=== PATIENT | male | born 1985 | race Caucasian/White ===

== ENCOUNTER 2025-04-21 22:12 | Emergency (ER) | payer MEDICAID, SELFPAY ==
[2025-04-21 22:35] VITALS: BMI 25.8
[2025-04-21 22:38] VITALS: BP 119/86; PULSE 86; RESP 18; TEMP 36.6; O2SAT 98
--- NOTE | 2025-04-30 22:53 | PD.EDMEDCL ---
ED Medical Clearance RME/HPI General Chief complaint: Medical Clearance Stated complaint: MEDICAL CLEARANCE Time Seen by Provider: 04/21/25 22:44 Arrival date/time: 04/21/25 22:12 RME / HPI RME / HPI Narrative: See [facility] for Dr. Yeh's HPI Documentation. Related Information Allergies Allergy/AdvReac Type Severity Reaction Status Date / Time No Known Allergies Allergy Verified 01/19/23 18:23 Review of Systems Review of Systems Systems Reviewed: All systems reviewed, normal except as documented Past Medical History Social History SMOKING STATUS: Current some day smoker ED Exam Narrative Physical exam: See [facility] for Dr. Yeh's Physical Exam Documentation. Course Quality Measures none Vital Signs Vital signs: Vital Signs Temperature 97.8 F 04/21/25 22:38 Pulse Rate 86 04/21/25 22:38 Respiratory Rate 18 04/21/25 22:38 Blood Pressure 119/86 H 04/21/25 22:38 Pulse Oximetry (%) 98 04/21/25 22:38 Oxygen Delivery Method Room Air 04/21/25 22:38 Medical Clearance [facility] Narrative [facility] Narrative:: This section includes all my notes and documentations, including HPI, PE, and ED course. Elías Yeh MD HPI: 39 y/o male here for intermediate medical clearance. Due to severe alcohol intoxication, he was sent here for evaluation. Here, patient is alert and awake. Commented how beautiful his nurse was during evaluation. No headache or dizziness. No chest pain or abdominal pain. No nausea or vomiting. No other complaints. ROS: All negative except as documented in HPI. Physical Exam: General: Alert and oriented. No acute distress. Eyes: Conjunctivae and lids clear. EOMI. PERRL. ENT: No nasal congestion. Neck: Supple. Heart: RRR. Lungs: No respiratory distress. Good air movement. No rhonchi, wheezing, rales. Abdomen: Soft and nontender. Normal bowel sounds. No distension. No rebound or guarding. Legs: No clubbing, cyanosis, edema. Skin: Warm and dry. Neuro: Alert and oriented X 3. Cranial Nerves II-XII grossly intact. No peripheral motor deficits. Musculoskeletal: All major joints and bones are not tender with no limited ROM. At this point, diagnoses include: Medical Clearance for Incarceration Based on my best medical judgment, made decision to medically clear the patient and no further evaluation or treatment indicated at this time. Patient understands and agrees to the discharge instructions customized and printed, see below. Discharge Instructions from Dr. Yeh printed for you: 1. After evaluation, you are medically cleared for intermediate. 2. Seek immediate medical care with any concerns. Elías Yeh MD Patient data External records reviewed:: [facility] previous records (Reviewed prior ED records from 11/14/23. Patient was seen for Abrasion of nose.) Clinical information provided by:: patient and law enforcement Social determinants that could affect healthcare access:: none Patient has the following chronic illnesses:: Smoking How is presenting disease/condition affected by chronic disease/condition?: uneffected by Evaluation data The following diagnostics were reviewed and interpreted by me:: other (specify) (N/A) Lab and/or radiology exams considered but not ordered:: None Interpretation Summary: None Medications / Prescriptions Medications or Prescriptions considered but not ordered:: None Medication administrations:: None Consultations Consultation(s) initiated? (list below): No Diagnosis Medical Clearance Differential Diagnosis: other (Alcohol intoxication) Most likely diagnosis given after review of the tests above:: Medical Clearance for Incarceration Admission Indicated Admission indicated?: not indicated Explain why admission is indicated or not indicated:: With no condition needing emergent intervention, there was no indication for admission. Admission Request Was there a request for admission?: No Disposition Plan Disposition Plan: Discharge Discharge Attestation Discharge Attestation: The patient and all family members were given an opportunity to ask questions and understood the discharge instructions. Discharge instructions specifically effects, indications for sooner follow up or return to the emergency department, and the expected course of current diagnosis. Patient condition: Stable Discharge Plan Plan Patient Disposition: Group Home/Court/Law Problem List Clinical Impression: Medical clearance for incarceration Patient/Caregiver Discharge Instructions Discharge Activity: activity as tolerated Education Materials: ED Drug Abuse, ED Alcohol Abuse Additional Instructions: Discharge Instructions from Dr. Yeh printed for you: 1. After evaluation, you are medically cleared for intermediate. 2. Seek immediate medical care with any concerns. Print Language: Telugu
== END 2025-04-21 22:51 ==
LOC: SERX 22:57
PROVIDERS: Emergency Provider Emergency Medicine
DX: Z02.89 Encounter for other administrative examinations (principal)
CPT/HCPCS: 99281

== ENCOUNTER 2025-05-04 00:43 | Emergency (ER) | payer MEDICAID, SELFPAY ==
[2025-05-04] VITALS (8 sets, daily range): BP systolic 90–126; BP diastolic 60–81; PULSE 77–92; RESP 16–20; TEMP 36.7–36.8; O2SAT 92–100; BMI 24.3
--- NOTE | 2025-05-04 00:55 | EDNOTE_ITS ---
ED Alcohol RME/HPI General Chief Complaint: Altered Mental Status Stated Complaint: HEAD PAIN Time Seen by Provider: 05/04/25 00:49 Arrival date/time: 05/04/25 00:43 RME / HPI complaint: alcohol intoxication Last drink: Just Prior to Arrival Chronic alcohol use: Yes Previous visits for alcohol intoxication: Yes Treatments prior to arrival: none RME / HPI narrative: Dr. Parker?s Main ED Evaluation: 39 y/o male with Hx of Alcohol Dependence brought in by EMS at the [facility] local police after having an incident at a gas station. Police were called when patient began yelling at a gas engine operator generators. When police arrived the patient complained of chest pain, prompting contact to EMS. Per EMS the patient was not making much sense and route. Patient has word salad and tangential thoughts and is unable to contribute significantly to the history. Related Data Allergies Allergy/AdvReac Type Severity Reaction Status Date / Time No Known Allergies Allergy Verified 05/04/25 01:15 Review of Systems Review of Systems ROS Unobtainable: unobtainable due to mental status Past Medical History Social History ALCOHOL: Current ALCOHOL LAST INTAKE: Just Prior to Arrival ED Exam Narrative Physical exam: GENERAL APPEARANCE: alert, well-developed, no acute distress VITALS: All vitals were reviewed and the pulse ox is 93% on room air, which is normal according to my interpretation. HEENT: Normocephalic, atraumatic; pupils equal, round, reactive to light; EOMI; mucous membranes pink, moist; oropharynx clear NECK: Supple LUNGS: CTABL; no wheezes, no rales, no rhonchi HEART: Regular rate, regular rhythm; normal S1, S2; no murmurs ABDOMEN: non distended; normal BS; soft, no tenderness, no guarding, no rebound; no masses, no organomegaly, no hernia BACK: no CVA tenderness EXTREMITIES: atraumatic; no edema NEUROLOGIC: awake; alert and oriented x4; cranial nerves II-XII grossly intact; no focal sensory or motor deficits PSYCHIATRIC: tangential thoughts, word salad SKIN: warm, dry, normal color; no rashes Course Course Course Narrative: Patient was placed in observation for treatment and monitoring of psychiatric symptoms, at 01:00 05/04/2025. Treatment plan includes psychiatric consult (1798 hold), reassessments, and possible placement into psychiatric facility. The patient had access and provided personal hygiene, shower, food, water, and daily medications. Observation ended at 05/04/2025 at 0600 hours. 0600: Care signed out to Ruba. Past medical, surgical, social and family history reviewed. Vitals and home medications reviewed. Results and treatment plan discussed. They will assume the care of the patient at this time and will follow the patient, pending psychiatric evaluation and final disposition. Quality Measures none Orders Category Date Time Status 1798 Psychiatric Hold NOW Care 05/04/25 02:30 Ordered One-to-one observation NOW Care 05/04/25 04:10 Active Acetaminophen Stat Lab 05/04/25 01:09 Completed Alcohol, Blood Medical Stat Lab 05/04/25 01:09 Completed BMP [Basic Metabolic Panel] Stat Lab 05/04/25 01:09 Completed CBC Stat Lab 05/04/25 01:09 Completed Drug Screen,Urine Stat Lab 05/04/25 00:55 Ordered Salicylate Stat Lab 05/04/25 01:09 Completed TSH [Thyroid Stimulating Hormone] Stat Lab 05/04/25 01:09 Completed Potassium Chloride [K-Dur] Med 05/04/25 03:53 Discontinued 20 meq PO X1 ONE Vital Signs Vital signs: Vital Signs Temperature 98.3 F 05/04/25 01:00 Pulse Rate 87 05/04/25 01:00 Respiratory Rate 18 05/04/25 01:00 Blood Pressure 102/77 05/04/25 01:00 Pulse Oximetry (%) 93 L 05/04/25 01:00 Oxygen Delivery Method Room Air 05/04/25 01:00 Discharge Plan Prescriptions/Referrals Referrals: No Primary/Family,Physician [Primary Care Provider] - In 1 week Problem List Clinical Impression: Acute psychosis Patient/Caregiver Discharge Instructions Print Language: Belarusian Alcohol MDM Narrative MDM Narrative: Scribe Attestation: Lolita Mendez am scribing for and in the presence of Dr. Parker. Provider Notation: Although this document has been carefully reviewed, there may still be some phonetic and other typographical errors. These errors are purely grammatical due to imperfections in the software program and should not be construed in any way to compromise the substance of the patient's medical care during this visit. Patient data External records reviewed:: [facility] previous records (Reviewed prior ED records from 04/30/25. Patient was seen for Medical clearance for incarceration.) and EMS form Clinical information provided by:: EMS Social determinants that could affect healthcare access:: alcohol use Patient has the following chronic illnesses:: None reported How is presenting disease/condition affected by chronic disease/condition?: no chronic disease Evaluation data The following diagnostics were reviewed and interpreted by me:: lab results Lab and/or radiology exams considered but not ordered:: None Interpretation Summary: See MDM above Medications / Prescriptions Medications or Prescriptions considered but not ordered:: None Medication administrations:: Medication Administration History Discontinued Medications Potassium Chloride (Potassium Chloride 20 Meq Tabcr) 20 meq PO X1 ONE Stop: 05/04/25 03:54 Last Admin: 05/04/25 04:09 Dose: 20 meq Documented By: OSVALDO See above if any Consultations Consultation(s) initiated? (list below): No Diagnosis Differential diagnosis alcohol: alcohol withdrawal delirium, hypomagnesemia, alcohol intoxication and alcohol ketoacidosis Most likely diagnosis given after review of the tests above:: See clinical impression below Admission Indicated Admission indicated?: not indicated Explain why admission is indicated or not indicated:: Pending psychiatric evaluation Admission Request Was there a request for admission?: No Disposition Plan Disposition Plan: other (specify) (Signed out to Dr. Yeh at 6 AM)
[2025-05-04 01:28] LABS: Basophils # (Auto) 0.0 Thou/mm3 (0.0-0.2); Basophils % (Auto) 1 % (0-2.5); Eosinophils # (Auto) 0.1 Thou/mm3 (0.0-0.5); Eosinophils % (Auto) 2 % (0-10); Hematocrit 40.1 % (41.0-53.0); Hemoglobin 13.0 g/dL (13.5-16.0); Immature Granulocytes Auto 0.00 Thou/mm3 (0.00-0.00); Lymphocytes # (Auto) 1.9 Thou/mm3 (1.0-4.8); Lymphocytes % (Auto) 43 % (10-50); Mean Corpuscular HGB Conc 32.4 g/dl (31.0-37.0); Mean Corpuscular Hemoglobin 30.4 pg (25.0-35.0); Mean Corpuscular Volume 94 fL (80-100); Monocytes # (Auto) 0.3 Thou/mm3 (0.0-0.8); Monocytes % (Auto) 7 % (0-12); Neutrophils # (Auto) 2.1 Thou/mm3 (1.8-7.7); Neutrophils % (Auto) 48 % (37-80); Nucleated Red Blood Cell # 0.00 Thou/mm3 (0.00-0.00); Nucleated Red Blood Cell % 0 /100 WBC (0); Platelet Count 150 Thou/mm3 (140-440); RDW Standard Deviation 50.9 fL (35.1-43.9); Red Blood Count 4.28 Miln/mm3 (4.50-5.90); White Blood Count 4.5 Thou/mm3 (3.8-10.6)
[2025-05-04 01:53] LABS: Acetaminophen < 2.0 mcg/mL (10.0-20.0); Anion Gap 12 (7-16); BUN/Creatinine Ratio 8 Ratio (12-20); Blood Urea Nitrogen 6 mg/dL (9-23); Calcium 8.7 mg/dL (8.3-10.6); Carbon Dioxide 27.8 mMol/L (20.0-31.0); Chloride 106 mMol/L (98-107); Creatinine (Component) 0.8 mg/dL (0.6-1.3); Estimated Creatinine Clearance 118.8 mL/min (>60); Glucose 96 mg/dL (74-106); Osmolality,Calculated 288 (275-295); Potassium 3.2 mMol/L (3.4-5.1); Salicylate < 3.0 mg/dL; Sodium 146 mMol/L (136-145); Thyroid Stimulating Hormone 0.72 uIU/mL (0.55-4.78); eGFR > 60 See Note
[2025-05-04 02:01] LABS: Alcohol, Blood Medical 370.4 mg/dL (0-10.0)
[2025-05-04] MEDS: RINGERS LACTATED 1000 ML 1,000 ML 999 ML IV (03:00)
--- NOTE | 2025-05-04 04:30 | PC.NURSE ---
pt asleep. arouses easily.
--- NOTE | 2025-05-04 04:36 | PC.NURSE ---
pt has been sleeping since . arouses easily and is calm, pleasant and cooperative. pot no placed on 1798 due to psycosis. pt is not suicidal.
--- NOTE | 2025-05-04 04:58 | PC.NURSE ---
pt placed on 1 to 1 observation. cloth covered helmet puller aware. pt continues to sleep.
--- NOTE | 2025-05-04 05:00 | PC.NURSE ---
asleep. vs wnl.
--- NOTE | 2025-05-04 05:30 | PC.NURSE ---
pt still sleeping. arouses easily.
--- NOTE | 2025-05-04 06:00 | PC.NURSE ---
pt sleeping. arouses easily.
--- NOTE | 2025-05-04 06:39 | PC.NURSE ---
encourage pt to provide urine sample. pt sleeping arouses easily, says he will urinate then goes back to sleep.
--- NOTE | 2025-05-04 07:40 | PC.NURSE ---
PATIENT ASSESSMENT COMPLETED AT THIS TIME, PATIENT SLEEPING WITH NO COMPLAINTS OF PAIN. PATIENT DENIES SUICIDAL IDEATION. PATIENT STATES HE WAS DRINKING LAST NIGHT AND FELT ILL. PATIENT WITH SITTER AT BEDSIDE. NO OTHER COMPLAINTS.
--- NOTE | 2025-05-04 07:44 | PD.EDADDENDU ---
Emergency Room Addendum Addendum Narrative: I took over the care from previous shift physician, Dr. Parker, at _0600_ on _05/04/25_.? See previous notes for complete H & P and ED course.?? I reviewed all diagnostic test results. Remarkable for serum alcohol 370.4 (48.3 at discharge) Diagnoses include: Alcohol intoxication After sobering up, he reports no thoughts of hurting himself or others. No hallucinations. Recommended outpatient treatment. Based on my best medical judgment, made decision no further evaluation or treatment indicated at this time.? Patient understands and agrees to the discharge instructions customized and printed, see below. Discharge Instructions from Dr. Yeh printed for you: 1. You were treated for severe alcohol intoxication. 2. To avoid future serious injuries and illnesses from alcohol, some even fatal, avoid alcohol at all cost. 3. See a private doctor on 05/05/2025 for help. 4. Seek immediate medical care with worsening or with any concerns. Elías Yeh MD
--- NOTE | 2025-05-04 08:00 | PC.NURSE ---
PATIENT SLEEPING WITH NO COMPAINTS AT THIS TIME. BREAKFAST TRAY IN ROOM AT THIS TIME. ONE TO ONE SITTER AT BEDSIDE.
[2025-05-04 08:12] LABS: Amphetamine/Methamp Scrn,U Negative (Negative); Barbiturate Screen,Urine Negative (Negative); Benzodiazepines Screen,Urine Negative (Negative); Benzoylecgonine Screen, Ur Negative (Negative); Fentanyl Screen,Urine Negative (Negative); Opiate Screen,Urine Negative (Negative); THC Screen,Urine Negative (Negative)
[2025-05-04 08:26] LABS: Magnesium 1.9 mg/dL (1.6-2.6)
--- NOTE | 2025-05-04 08:59 | PC.NURSE ---
PATIENT SLEEPING. ONE TO ONE AT BEDSIDE.
[2025-05-04 10:28] LABS: Alcohol, Blood Medical 143.8 mg/dL (0-10.0)
[2025-05-04 14:05] LABS: Alcohol, Blood Medical 48.3 mg/dL (0-10.0)
== END 2025-05-04 14:34 | disposition home or self-care (01) ==
PROVIDERS: Emergency Medicine; Emergency Provider Emergency Medicine
DX: F23 Brief psychotic disorder (principal); F10.229 Alcohol dependence with intoxication, unspecified; Y90.9 Presence of alcohol in blood, level not specified
CPT/HCPCS: 36415; 80048; 80307; 80320; 80329; 83735; 84443; 85025; 96360; 96361; 99283; J7120; A9270; G0480

== ENCOUNTER 2025-05-27 23:20 | Emergency (ER) | payer MEDICAID, SELFPAY ==
[2025-05-27 23:32] VITALS: PULSE 88; RESP 18; O2SAT 97; BMI 24.2
[2025-05-27 23:36] VITALS: BP 123/76; PULSE 87; RESP 18; TEMP 36.6; O2SAT 95
--- NOTE | 2025-05-27 23:41 | PD.EDRME ---
Rapid Medical Screening Exam RME Arrival date/time: 05/27/25 23:20 39M with history of psych/alcohol presents to ED wanting IVF because he's been drinking a lot. Patient was recently here for this. Chief Complaint: Alcohol Vital signs: Vital Signs Temperature 97.8 F 05/27/25 23:36 Pulse Rate 87 05/27/25 23:36 Respiratory Rate 18 05/27/25 23:36 Blood Pressure 123/76 05/27/25 23:36 Pulse Oximetry (%) 95 05/27/25 23:36 Oxygen Delivery Method Room Air 05/27/25 23:36 Exam: Sleeping. Intoxicated Clinical Impression: Alcohol intox vs drug use vs homeless
--- NOTE | 2025-05-28 06:56 | PC.NURSE ---
PT IS ASLEEP IN THE [facility] RM
[2025-05-28 07:56] VITALS: BP 135/84; PULSE 98; RESP 16; TEMP 36.8; O2SAT 97
--- NOTE | 2025-05-28 08:09 | PD.EDALCOH ---
ED Alcohol RME/HPI General Chief Complaint: Alcohol Stated Complaint: HEADACHE Time Seen by Provider: 05/28/25 05:03 Arrival date/time: 05/27/25 23:20 RME / HPI RME / HPI narrative: 05/27/25 23:20 39M with history of psych/alcohol presents to ED wanting IVF because he's been drinking a lot. Patient was recently here for this. Exam: Sleeping. Intoxicated Impression: Alcohol intox vs drug use vs homeless Related Data Allergies Allergy/AdvReac Type Severity Reaction Status Date / Time No Known Allergies Allergy Verified 05/27/25 23:31 ED Exam Narrative Physical exam: Constitutional: Patient alert and oriented. Well appearing. No acute distress. Not toxic appearing. EtOH on breath. Head: Normocephalic, atraumatic. No raccoon eyes, step-offs, tate signs, hemotympanum, rhinorrhea, otorrhea or tenderness throughout. Eyes: Periorbital regions bilaterally normal to inspection. Conjunctiva clear bilaterally. Sclera anicteric bilaterally. Pupils equal, round, reactive to light bilaterally. Extraocular movements intact bilaterally. Mouth/Throat: Mucous membranes moist. No stridor or muffled voice. No trismus. Handling secretions without difficulty. Airway widely patent. Neck: Supple. Trachea midline. No JVD. No nuchal rigidity. Normal range of motion. Well healed scar noted to R anterior neck (pt states prior jaw fracture) Respiratory: Normal effort. No accessory muscle use or respiratory distress. Lungs clear to auscultation bilaterally without rhonchi, wheezes, or crackles. Cardiovascular: RRR. Normal S1/S2. No murmurs or rubs. Radial pulses intact bilaterally. Abdomen: Soft. Non-distended. Non-tender throughout. No pulsatile mass. No guarding or rebound. Negative Martin?s sign. Negative McBurney?s point tenderness. Negative Rovsing?s. Back: No midline tenderness or step-offs. No CVA tenderness to palpation bilaterally. Upper Extremities: No gross deformities. Lower Extremities: No gross deformities. No edema or calf tenderness. Neuro: Speech normal. No gross motor or sensory deficits to upper or lower extremities bilaterally. GCS 15. CN II?XII grossly intact. Skin: Warm, dry, normal color. Psych: Normal affect. Cooperative. Normal insight. Course Quality Measures none Vital Signs Vital signs: Vital Signs Temperature 97.8 F 05/27/25 23:36 Pulse Rate 87 05/27/25 23:36 Respiratory Rate 18 05/27/25 23:36 Blood Pressure 123/76 05/27/25 23:36 Pulse Oximetry (%) 95 05/27/25 23:36 Oxygen Delivery Method Room Air 05/27/25 23:36 Discharge Plan Plan Patient Disposition: HOME (Self Care) Patient condition on transfer: Stable Prescriptions/Referrals Referrals: No Primary/Family,Physician [Primary Care Provider] - In 1 week Problem List Clinical Impression: Alcoholic intoxication Patient/Caregiver Discharge Instructions Education Materials: ED Alcohol Intoxication Additional Instructions: Follow up with your primary medical doctor within 24 hours. Return to the Emergency Room immediately for any new, worsening, continuing symptoms or any concerns at all. Return to the Emergency Room within 24 hours if you are unable to follow up with your primary medical doctor within 24 hours. Print Language: Algerian Stand Alone Forms: Sherry Award Info., Patient Portal Info Letter PA/JEROMY Supervising Physician PA/[facility] Supervising Physician: Dr. Granda Alcohol MDM Narrative MDM Narrative: Patient was initially greeted 8 hours prior to my arrival here in the ER for EtOH intoxication and patient states he just needed to sleep here in the ER and he feels better now and wants to go home. Patient states he did not hit his head and has not had any nausea or vomiting. I offered him labs and imaging however he declined. Patient has a clear speech, lucid sensorium, steady gait and is no longer intoxicated. Pt is safe for discharge. Advise he follow-up with his PCP this week and strict ER return precautions advised. Patient data External records reviewed:: [facility] previous records Clinical information provided by:: patient Social determinants that could affect healthcare access:: none Patient has the following chronic illnesses:: Alcohol abuse How is presenting disease/condition affected by chronic disease/condition?: caused by Evaluation data The following diagnostics were reviewed and interpreted by me:: other (specify) Lab and/or radiology exams considered but not ordered:: Additional Labs and radiology considered, but not ordered as they were not clinically indicated at this time. Interpretation Summary: None Medications / Prescriptions Medications or Prescriptions considered but not ordered:: I ordered medications based on the patient?s clinical needs and assessment, as documented in the chart. For medications not prescribed, they were not indicated for the patient's current condition, and I determined they were unnecessary at this time to avoid potential risks or complications. Medication administrations:: None Consultations Consultation(s) initiated? (list below): No Diagnosis Most likely diagnosis given after review of the tests above:: Alcohol intoxication now resolved Admission Indicated Admission indicated?: not indicated Admission Request Was there a request for admission?: No Disposition Plan Disposition Plan: Discharge Discharge Attestation Discharge Attestation: The patient and all family members were given an opportunity to ask questions and understood the discharge instructions. Discharge instructions specifically effects, indications for sooner follow up or return to the emergency department, and the expected course of current diagnosis. Patient condition: Stable
== END 2025-05-28 08:22 | disposition home or self-care (01) ==
PROVIDERS: Emergency Provider Emergency Medicine
DX: F10.129 Alcohol abuse with intoxication, unspecified (principal)
CPT/HCPCS: 99281

== ENCOUNTER 2025-05-30 00:38 | Emergency (ER) | payer MEDICAID, SELFPAY ==
--- NOTE | 2025-05-30 00:40 | PD.EDALCOH ---
ED Alcohol RME/HPI General Chief Complaint: Alcohol Stated Complaint: ETOH Time Seen by Provider: 05/30/25 00:53 Arrival date/time: 05/30/25 00:38 RME / HPI RME / HPI narrative: See MDM for Dr. Yeh's HPI documentation. Related Data Allergies Allergy/AdvReac Type Severity Reaction Status Date / Time No Known Allergies Allergy Verified 05/30/25 00:40 Review of Systems Review of Systems Systems Reviewed: All systems reviewed, normal except as documented Past Medical History Past Medical History CARDIAC: Negative Congestive Heart Failure RESPIRATORY: Negative Chronic Obstructive Pulmonary Disease (COPD) GENITOURINARY: Negative Renal Disease ENDOCRINE: Negative Diabetes Mellitus Type 1 or Diabetes Mellitus Type 2 Social History SMOKING STATUS: Current some day smoker ED Exam Narrative Physical exam: See MDM for Dr. Yeh's physical exam documentation. Course Quality Measures none Orders Category Date Time Status CT cervical spine wo con Stat Exams 05/30/25 00:[address] chest abdomen pelvis wo Stat Exams 05/30/25 00:[address] head/brain wo con Stat Exams 05/30/25 00:42 Taken Vital Signs Vital signs: Vital Signs Temperature 98.3 F 05/30/25 00:50 Pulse Rate 94 05/30/25 00:50 Respiratory Rate 18 05/30/25 00:50 Blood Pressure 128/93 H 05/30/25 00:50 Pulse Oximetry (%) 96 05/30/25 00:50 Oxygen Delivery Method Room Air 05/30/25 00:50 Discharge Plan Plan Patient Disposition: HOME (Self Care) Prescriptions/Referrals Referrals: No Primary/Family,Physician [Primary Care Provider] - In 1 week Problem List Clinical Impression: Fall Patient/Caregiver Discharge Instructions Discharge Activity: activity as tolerated Education Materials: ED Fall with Uncertain Cause Additional Instructions: Discharge instructions from Dr. Yeh: 1. After extensive evaluation, fortunately there is no very serious injury.? Such as brain injury or broken neck or broken back or other broken bone or internal organ injury. 2. If applicable, avoid alcohol and all drugs. 3. Ibuprofen and Tylenol as needed. 4. See a private doctor later today on 05/30/2025 for recheck and repeat exam to make sure we didn't miss any serious underlying injury. 5. Seek immediate medical care with severe and persistent headache, persistent vomiting, being extremely drowsy when you should be completely alert and awake, or with any concerns. Print Language: Indian Stand Alone Forms: Sherry Award Info., Patient Portal Info Letter Alcohol MDM Narrative MDM Narrative: This section includes all my notes and documentations, including HPI, PE, and ED course. 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 He asked to call 911 because he fell backwards. He landed on the back of his head. No loss of consciousness. Denies alcohol or drug usage. No headache or dizziness. No neck pain or back pain. No chest pain or abdominal pain. No pain in arms or legs. No other complaints. ROS: All negative except as documented in HPI. Physical Exam: General:? Alert and oriented.? No acute distress.? Eyes:? Conjunctivae and lids clear.? EOMI.? PERRL. ENT:? No signs of head trauma. Neck:? Supple.? No tenderness. Heart:? RRR. Lungs:? No respiratory distress.? Good air movement.? No rhonchi, wheezing, rales.? Chest:? No tenderness. Abdomen:? Soft and nontender.? Normal bowel sounds.? No distension.? No rebound or guarding.? Back:? No tenderness.? Skin:? Warm and dry.? Neuro:? Alert and oriented X 3.? Cranial Nerves II-XII grossly intact.? No peripheral motor deficits. Musculoskeletal:? All major joints and bones are not tender with no limited ROM. I reviewed EMS notes. I reviewed all diagnostic test results. My review of the CT head report is NAD. My review of the cervical spine CT report is no fracture. My review of the CT chest abdomen pelvis report is no acute injury. At this point, diagnoses include: Fall with no serious injury Recommended supportive care. Based on my best medical judgment, made decision no further evaluation or treatment indicated at this time. Patient understands and agrees to the discharge instructions customized and printed, see below. Discharge instructions from Dr. Yeh: 1. After extensive evaluation, fortunately there is no very serious injury.? Such as brain injury or broken neck or broken back or other broken bone or internal organ injury. 2. If applicable, avoid alcohol and all drugs. 3. Ibuprofen and Tylenol as needed. 4. See a private doctor later today on 05/30/2025 for recheck and repeat exam to make sure we didn't miss any serious underlying injury. 5. Seek immediate medical care with severe and persistent headache, persistent vomiting, being extremely drowsy when you should be completely alert and awake, or with any concerns. Elías Yeh MD Patient data External records reviewed:: [facility] previous records (Per chart review, patient was seen here on 05/28/25 for alcohol intoxication.) and EMS form Clinical information provided by:: patient and EMS Social determinants that could affect healthcare access:: alcohol use Patient has the following chronic illnesses:: none How is presenting disease/condition affected by chronic disease/condition?: no chronic disease Evaluation data The following diagnostics were reviewed and interpreted by me:: radiology exam(s) Lab and/or radiology exams considered but not ordered:: none Interpretation Summary: I reviewed all diagnostic test results. My review of the CT head report is NAD. My review of the cervical spine CT report is no fracture. My review of the CT chest abdomen pelvis report is no acute injury. Medications / Prescriptions Medications or Prescriptions considered but not ordered:: none Medication administrations:: none Consultations Consultation(s) initiated? (list below): No Diagnosis Differential diagnosis alcohol: other (Head injury, ICH, spinal fracture, internal organ injury) Most likely diagnosis given after review of the tests above:: Fall with no serious injury Admission Indicated Admission indicated?: not indicated Explain why admission is indicated or not indicated:: With no condition needing emergent intervention, there was no indication for admission. Admission Request Was there a request for admission?: No Disposition Plan Disposition Plan: Discharge Discharge Attestation Discharge Attestation: The patient and all family members were given an opportunity to ask questions and understood the discharge instructions. Discharge instructions specifically effects, indications for sooner follow up or return to the emergency department, and the expected course of current diagnosis. Patient condition: Stable
[2025-05-30 00:41] VITALS: PULSE 90; RESP 18; BMI 25.0
--- NOTE | 2025-05-30 00:42 | XR_ITS ---
Examination: CT cervical spine without contrast 2-D sagittal reconstructions 2-D coronal reconstructions 3-D reconstructions. Exam date and time: May 30, 2025, 0059 hours INDICATIONS: Ground-level fall today with injury to the neck, neck pain CTDI:vol (mGy) 14.76 DLP: (mGycm) 345 Technique: Multiple 2 mm axial sections of the cervical spine have been obtained. The coronal and sagittal reconstructions have been obtained. 3-D reconstructions have been obtained. Low dose protocols were performed. One or more of the following dose reduction techniques were used; automated exposure control, adjustment of the mA and/or KV according to patient size, use of iterative reconstruction technique. Findings: Axial sections demonstrate intact base of the skull. C1 exhibit satisfactory relationship to the odontoid. No acute cervical vertebral body fracture seen. Alignment posterior spinous processes satisfactory. Old mandible fractures Impression: No acute cervical fracture.
--- NOTE | 2025-05-30 00:42 | XR_ITS ---
Examination: CT brain head without contrast. 2-D sagittal coronal reconstructions Date and time of exam: May 30, 2025, 0057 hours INDICATIONS: Patient slipped and fell today with injury to the head, head pain CTDI: vol (mGy): 45.60 DLP: (mGycm): 865 Technique: Multiple CT axial sections of the brain have been obtained, 5 mm slice thickness. Contrast has not been administered. 2-D sagittal, coronal reconstructions have been obtained Low dose protocols were performed. One or more of the following dose reduction techniques were used; automated exposure control, adjustment of the mA and/or KV according to patient size, use of iterative reconstruction technique. Findings: No significant ventricular enlargement. Intra-axial or extra-axial hemorrhage density is not seen. No mass effect or midline shift Basal cisterns are not remarkable. Fourth ventricle is midline. Cranial vault intact. Impression: Negative for acute hemorrhage, mass effect or midline shift
--- NOTE | 2025-05-30 00:42 | XR_ITS ---
Examination: CT chest, without intravenous contrast. CT abdomen, without intravenous contrast. CT pelvis, without intravenous contrast. 2-D sagittal and coronal reconstructions. 3-D reconstructions. Date and time of exam: May 30, 2025, 0100 hours INDICATIONS: Patient slipped and fell today with injury to the chest and abdomen, chest pain abdomen pain CTDI vol (mgy) 12.31 DLP (MGycm) 981 Technique: Multiple CT images, 3.0 mm slice thickness, obtained chest, abdomen, pelvis, with the high-resolution 64 slice scanner.. Sagittal and coronal 2-D reconstructions are obtained. 3-D reconstructions Low dose protocols were performed. One or more of the following dose reduction techniques were used; automated exposure control, adjustment of the mA and/or KV according to patient size, use of iterative reconstruction technique. Findings: Thoracic aorta pulmonary arteries intact No hemopericardium No pneumothorax pulmonary contusion or hemothorax 5 mm pulmonary nodule right upper lobe noncalcified Hepatomegaly, fatty filtration throughout the liver, liver is irregular in contour 20 mm left adrenal adenoma No liver splenic or renal laceration Aortic calcification, abdominal aorta intact, no free blood in the abdomen Normal appendix Urinary bladder intact Small portosystemic collateral vessels medial to the spleen Manubrium and body of the sternum thoracic lumbar vertebral bodies and sacral segments intact Bilateral old rib fractures Iliac bones acetabular regions anterior rami and hips appear intact IMPRESSION: Thoracic aorta pulmonary arteries intact No pneumothorax 5 mm pulmonary nodule right upper lobe, recommend 6-month follow-up CT chest without contrast Hepatomegaly, fatty infiltration throughout the liver, primary hepatocellular disease versus cirrhosis No abnormal parenchymal laceration Abdominal aorta intact No free blood in the abdomen or pelvis
[2025-05-30 00:50] VITALS: BP 128/93; PULSE 94; RESP 18; TEMP 36.8; O2SAT 96
--- NOTE | 2025-05-30 02:04 | PRELIM_ITS ---
CT scan of the head without intravenous contrast (axial sections with sagittal and coronal reformats) May 30, 2025 0057 hours Clinical History: Head injury. Comparison: No prior study is available for comparison. Findings: No evidence of intracranial hemorrhage, mass effect or midline shift. The ventricles and CSF spaces are unremarkable. The calvarium is intact. The mastoid air cells and the visualized paranasal sinuses are clear. There is a chronic fracture right mandibular with evidence of internal fixations. There are chronic fractures of bilateral zygomatic arches. Impression: No evidence of intracranial hemorrhage, midline shift or calvarial fracture. Other findings as described above. Suggest clinical correlation and follow up accordingly. Report Electronically Signed By: Jacob Glez 05/30/2025 2:04:13 AM [EST]
--- NOTE | 2025-05-30 02:06 | PRELIM_ITS ---
CT scan of the cervical spine without intravenous contrast (axial sections with sagittal and coronal reformats) May 30, 2025 0059 hours Clinical History: Trauma. Comparison: No prior study is available for comparison. Findings: There is no evidence of acute fracture or traumatic subluxation. There is straightening of the cervical lordosis, which may be due to muscle spasm or patient position. The prevertebral soft tissues are unremarkable. Note is made of a chronic fracture of the left subcondylar mandibular. There is a chronic fracture of the right mandibular ramus with internal fixation. Impression: No evidence of acute fracture or traumatic subluxation. Other findings as described above. Suggest clinical correlation and follow up accordingly. Report Electronically Signed By: Jacob Glez 05/30/2025 2:06:24 AM [EST]
--- NOTE | 2025-05-30 02:39 | PRELIM_ITS ---
CT scan of the chest, abdomen and pelvis without intravenous contrast (axial sections with sagittal, coronal and 3D reformats) May 30, 2025 at 0100 hours Clinical History: Fall. Comparison: No prior study is available for comparison. Findings: There is a 4 mm noncalcified nodule in the right middle lobe (axial image [id number]). The lungs are otherwise clear. There is no pleural effusion or pneumothorax. The thoracic aorta is unremarkable on this noncontrast study. There is no mediastinal collection. There is no pericardial effusion. Fatty infiltration of the liver is noted with slight surface nodularity, indicating chronic parenchymal disease. The gallbladder is partially contracted. There is a 2 cm hypodense nodule (HU 8) in the left adrenal, likely representing an adenoma. The spleen, pancreas, right adrenal and kidneys are unremarkable on this noncontrast study. Prominent vessels are seen in the upper abdomen, likely representing portosystemic collaterals. No evidence of bowel obstruction. The appendix is within normal limits (images [id number]). The urinary bladder is distended. There is no free fluid or free air. The abdominal aorta and its branches demonstrate atheromatous calcification without evidence of aneurysm. No evidence of acute fracture is identified. Mild degenerative changes are identified in the spine. Please note that evaluation of soft tissue/vascular structures and bowel loops is limited due to absence of IV and oral contrast. Impression: 1. No evidence of acute visceral or bony injury to the chest, abdomen or pelvis on this noncontrast study. 2. Small right pulmonary indeterminate nodule (4 mm). Recommend comparison with prior studies or follow-up to confirm stability. 3. Fatty infiltration of the liver with slight surface nodularity, indicating chronic parenchymal disease. 4. Portosystemic collaterals, concerning for portal hypertension. 5. Small left adrenal adenoma (2 cm). 6. Other findings as described above. Suggest clinical correlation and follow up accordingly. Report Electronically Signed By: Jacob Glez 05/30/2025 2:38:29 AM [EST]
[2025-05-30 03:57] VITALS: BP 128/83; PULSE 82; RESP 18; TEMP 36.6; O2SAT 96
== END 2025-05-30 03:58 | disposition home or self-care (01) ==
PROVIDERS: Emergency Provider Emergency Medicine
DX: S09.90XA Unspecified injury of head, initial encounter (principal); S19.9XXA Unspecified injury of neck, initial encounter; S29.9XXA Unspecified injury of thorax, initial encounter; W19.XXXA Unspecified fall, initial encounter; Y92.512 Supermarket, store or market as the place of occurrence of the external cause
CPT/HCPCS: 70450; 71250; 72125; 74176; 99282

== ENCOUNTER 2025-06-04 02:04 | Emergency (ER) | payer MEDICAID, SELFPAY ==
[2025-06-04 02:11] VITALS: BMI 22.6
[2025-06-04 02:13] VITALS: BP 135/88; PULSE 90; RESP 18; TEMP 36.5; O2SAT 96
--- NOTE | 2025-06-04 02:57 | PD.EDRME ---
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 Chief Complaint: General Adult/Misc Complain Time Seen by Provider: 06/04/25 02:58 Vital signs: Vital Signs Temperature 97.7 F 06/04/25 02:13 Pulse Rate 90 06/04/25 02:13 Respiratory Rate 18 06/04/25 02:13 Blood Pressure 135/88 H 06/04/25 02:13 Pulse Oximetry (%) 96 06/04/25 02:13 Oxygen Delivery Method Room Air 06/04/25 02:13 Exam: Sleeping sitting up in chair. No wanting to respond except to raise head. Clinical Impression: alcohol vs drug use vs psych vs homeless vs CHI vs brain bleed
--- NOTE | 2025-06-04 03:02 | XR_ITS ---
Examination: CT brain head without contrast. 2-D sagittal coronal reconstructions Date and time of exam: June 04, 2025, 0328 hours, comparison May 30, 2025 INDICATIONS: Ground-level fall today with injury of the head, head pain CTDI: vol (mGy): 45.4 DLP: (mGycm): 859 Technique: Multiple CT axial sections of the brain have been obtained, 5 mm slice thickness. Contrast has not been administered. 2-D sagittal, coronal reconstructions have been obtained Low dose protocols were performed. One or more of the following dose reduction techniques were used; automated exposure control, adjustment of the mA and/or KV according to patient size, use of iterative reconstruction technique. Findings: No significant ventricular enlargement. Intra-axial or extra-axial hemorrhage density is not seen. No mass effect or midline shift Basal cisterns are not remarkable. Fourth ventricle is midline. Cranial vault intact. Impression: Negative for acute hemorrhage, mass effect or midline shift
--- NOTE | 2025-06-04 04:00 | PC.NURSE ---
FOOD PROVIDED TO PT.
--- NOTE | 2025-06-04 07:09 | EDNOTE_ITS ---
<Statement entered by Claudia Diaz MD - 06/19/25 17:42> As co-signing physician, I was present and available for consult prn. I concur with the plan and care as documented by the midlevel provider. ED General RME/HPI General Chief complaint: General Adult/Misc Complain Stated complaint: HEADACHE/ETOH Time Seen by Provider: 06/04/25 02:58 Arrival date/time: 06/04/25 02:04 39-year-old homeless male presents emergency department today stating that he drinks proximately 1/5 of alcohol a day patient reports that he was drinking yesterday and patient reports he fell hitting his head patient came in for evaluation Limitations: no limitations RME / HPI RME / HPI narrative: 06/04/25 02:04 39M with history of psych/alcohol presents to ED with alcohol intoxication. 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 Exam: Sleeping sitting up in chair. No wanting to respond except to raise head. Impression: alcohol vs drug use vs psych vs homeless vs CHI vs brain bleed Related Data Allergies Allergy/AdvReac Type Severity Reaction Status Date / Time No Known Allergies Allergy Verified 06/04/25 02:12 Review of Systems Review of Systems Systems Reviewed: All systems reviewed, normal except as documented Constitutional Constitutional: Reports system reviewed and no additional complaints, except as documented, Denies fever(s) and Denies headache(s) Eyes Eyes: Reports system reviewed and no additional complaints, except as documented and Denies blurry vision ENT Ears, Nose, Mouth, and Throat: Reports system reviewed and no additional complaints, except as documented, Denies headache(s), Denies nasal congestion and Denies nasal discharge Cardiovascular Cardiovascular: Reports system reviewed and no additional complaints, except as documented, Denies chest pain and Denies dyspnea Respiratory Respiratory: Reports system reviewed and no additional complaints, except as documented, Denies chest congestion, Denies cough and Denies dyspnea Gastrointestinal Gastrointestinal: Reports system reviewed and no additional complaints, except as documented and Denies abdominal pain Integumentary/Breasts Skin/Breast: Reports system reviewed and no additional complaints, except as documented and Denies rash Neurologic Neurologic: Reports system reviewed and no additional complaints, except as documented, Reports as per HPI and Denies headache(s) Past Medical History Past Medical History CARDIAC: Negative Congestive Heart Failure RESPIRATORY: Negative Chronic Obstructive Pulmonary Disease (COPD) GENITOURINARY: Negative Renal Disease ENDOCRINE: Negative Diabetes Mellitus Type 1 or Diabetes Mellitus Type 2 Social History SMOKING STATUS: Unknown if ever smoked ED Exam General Limitations: Present no limitations General appearance: Present alert and in no apparent distress Head Head exam: Present atraumatic Eye Eye exam: Present normal appearance, PERRL and EOMI ENT ENT exam: Present normal exam, normal oropharynx and mucous membranes moist Neck Neck exam: Present normal inspection, full ROM and trachea midline Chest Chest inspection: Present normal inspection and symmetric chest wall rise Respiratory Respiratory exam: Present normal lung sounds bilaterally Cardiovascular Cardiovascular exam: Present regular rate, normal rhythm and normal heart sounds Abdominal Exam Abdominal exam: Present soft and normal bowel sounds Extremities Exam Extremities exam: Present normal inspection and full ROM Back Exam Back exam: Present normal inspection and full ROM Neurological Exam Neurological exam: Present alert, oriented X3 and CN II-XII intact Psychiatric Psychiatric exam: Present normal affect and normal mood Skin Skin exam: Present warm, dry, intact and normal color Course Quality Measures none Orders Category Date Time Status CT head/brain wo con Stat Exams 06/04/25 03:02 Taken Vital Signs Vital signs: Vital Signs Temperature 97.7 F 06/04/25 02:13 Pulse Rate 90 06/04/25 02:13 Respiratory Rate 18 06/04/25 02:13 Blood Pressure 135/88 H 06/04/25 02:13 Pulse Oximetry (%) 96 06/04/25 02:13 Oxygen Delivery Method Room Air 06/04/25 02:13 O2 saturation 96% on room air within normal limits Discharge Plan Plan Patient Disposition: HOME (Self Care) Discharge Disposition comment: Stable Prescriptions/Referrals Referrals: No Primary/Family,Physician [Primary Care Provider] - In 1 week Problem List Clinical Impression: Alcoholic intoxication, Fall Patient/Caregiver Discharge Instructions Education Materials: ED Alcohol Intoxication Additional Instructions: Please follow up with your primary care doctor in the next 24-48hrs for any worsening symptoms return here immediately Print Language: Afghan Stand Alone Forms: Sherry Award Info., Patient Portal Info Letter PA/EXTENSION SUPERVISOR Supervising Physician PA/EXTENSION SUPERVISOR Supervising Physician: Dr. Diaz MDM Narrative MDM hospital course (for use when minimal MDM required): 39-year-old homeless male presents emergency department today stating that he drinks proximately 1/5 of alcohol a day patient reports that he was drinking yesterday and patient reports he fell hitting his head patient came in for evaluation Clinically patient well-appearing does not appear ill or toxic Patient does not appear to be intoxicated at this time patient been in for a few hours I reviewed the patient imaging which was ordered by previous provider no acute emergent findings noted Patient has no abnormal neurological findings therefore patient be discharged home Patient reports no neck pain no chest pain no shortness of breath no abdominal pain Patient discharged home in no distress to follow-up with primary care doctor in the next 24 to 48 hours and for any worsening symptoms to return to the ER immediately Clinical Information Provided by: patient Medical Records reviewed None Meds/Rx considered, not ordered None Labs/Rad/Tests considered, not ordered None Chronic Illness/Social Conditions which may negatively complicate care or outcome(s)-explain: Homeless EKG EKG not done Labs Labs: none Imaging Imaging interpretation: see narrative above Imaging Interpretation(s): Reviewed by me Medication Administration(s) none
[2025-06-04 07:10] VITALS: BP 124/68; PULSE 100; RESP 16; TEMP 36.6; O2SAT 98
== END 2025-06-04 07:15 | disposition home or self-care (01) ==
PROVIDERS: Emergency Provider Emergency Medicine
DX: F10.129 Alcohol abuse with intoxication, unspecified (principal); W19.XXXA Unspecified fall, initial encounter; Z59.00 Homelessness unspecified
CPT/HCPCS: 70450; 99282

== ENCOUNTER 2025-06-11 03:23 | Emergency (ER) | payer MEDICAID, SELFPAY ==
[2025-06-11 03:38] VITALS: BP 128/88; PULSE 99; RESP 18; TEMP 36.5; O2SAT 96; BMI 25.8
--- NOTE | 2025-06-11 04:28 | XR_ITS ---
Examination: Hand, left Clinical indication 2 days of left hand swelling Technique: Hand AP, oblique, lateral 3 views Date and time of exam: 06/11/2025 at 4:28 a.m. FINDINGS: No bony or soft tissue abnormalities are seen IMPRESSION: 1. Normal x-rays of the left hand and wrist
--- NOTE | 2025-06-11 04:28 | PD.EDRME ---
Rapid Medical Screening Exam [facility] Arrival date/time: 06/11/25 03:23 39M with history of alcohol/psych presents to ED with 2 days of L hand swelling w/o known fall/trauma/skin injury. Chief Complaint: Hand/Wrist Problems Vital signs: Vital Signs Temperature 97.7 F 06/11/25 03:38 Pulse Rate 99 06/11/25 03:38 Respiratory Rate 18 06/11/25 03:38 Blood Pressure 128/88 H 06/11/25 03:38 Pulse Oximetry (%) 96 06/11/25 03:38 Oxygen Delivery Method Room Air 06/11/25 03:38 Exam: L hand swelling and tenderness. Clinical Impression: cellulitis vs hand fx vs gout vs skin swelling vs insect bite
[2025-06-11 05:30] LABS: Basophils # (Auto) 0.1 Thou/mm3 (0.0-0.2); Basophils % (Auto) 1 % (0-2.5); Eosinophils # (Auto) 0.0 Thou/mm3 (0.0-0.5); Eosinophils % (Auto) 1 % (0-10); Hematocrit 40.6 % (41.0-53.0); Hemoglobin 13.5 g/dL (13.5-16.0); Immature Granulocytes Auto 0.01 Thou/mm3 (0.00-0.00); Lymphocytes # (Auto) 2.4 Thou/mm3 (1.0-4.8); Lymphocytes % (Auto) 41 % (10-50); Mean Corpuscular HGB Conc 33.3 g/dl (31.0-37.0); Mean Corpuscular Hemoglobin 30.4 pg (25.0-35.0); Mean Corpuscular Volume 91 fL (80-100); Monocytes # (Auto) 0.5 Thou/mm3 (0.0-0.8); Monocytes % (Auto) 8 % (0-12); Neutrophils # (Auto) 2.9 Thou/mm3 (1.8-7.7); Neutrophils % (Auto) 50 % (37-80); Nucleated Red Blood Cell # 0.00 Thou/mm3 (0.00-0.00); Nucleated Red Blood Cell % 0 /100 WBC (0); Platelet Count 163 Thou/mm3 (140-440); RDW Standard Deviation 56.2 fL (35.1-43.9); Red Blood Count 4.44 Miln/mm3 (4.50-5.90); White Blood Count 5.9 Thou/mm3 (3.8-10.6)
[2025-06-11 06:17] LABS: Sed Rate (ESR) 35 mm/hr (0-15)
[2025-06-11 06:19] LABS: Alanine Aminotransferase 80 U/L (10-49); Albumin, Serum 4.7 gm/dL (3.5-5.0); Albumin/Globulin Ratio 1.4 (1.2-2.2); Alkaline Phosphatase 150 U/L (46-116); Anion Gap 12 (7-16); Aspartate Amino Transferase 122 U/L (0-34); BUN/Creatinine Ratio 13 Ratio (12-20); Bilirubin,Total 0.3 mg/dL (0.3-1.2); Blood Urea Nitrogen 10 mg/dL (9-23); C-Reactive Protein < 0.5 mg/dL (0.0-0.9); Calcium 8.7 mg/dL (8.3-10.6); Calcium (Corrected) 8.7 mg/dL (8.5-10.1); Carbon Dioxide 27.3 mMol/L (20.0-31.0); Chloride 105 mMol/L (98-107); Creatinine (Component) 0.8 mg/dL (0.6-1.3); Estimated Creatinine Clearance 114.8 mL/min (>60); Globulin 3.3 gm/dL (2.3-3.5); Glucose 86 mg/dL (74-106); Osmolality,Calculated 284 (275-295); Potassium 3.9 mMol/L (3.4-5.1); Sodium 144 mMol/L (136-145); Total Protein 8.0 gm/dL (5.7-8.2); eGFR > 60 See Note
--- NOTE | 2025-06-11 06:56 | EDNOTE_ITS ---
Upper Extremity Injury RME/HPI General Chief Complaint: Hand/Wrist Problems Stated Complaint: LEFT HAND SWELLING Time Seen by Provider: 06/11/25 06:51 Arrival date/time: 06/11/25 03:23 39-year-old male presents to the emergency department for complaints of swelling to the dorsal aspect of his left hand patient unsure whether or not he injured himself Limitations: no limitations RME / HPI RME / HPI narrative: 06/11/25 03:23 39M with history of alcohol/psych presents to ED with 2 days of L hand swelling w/o known fall/trauma/skin injury. Exam: L hand swelling and tenderness. Impression: cellulitis vs hand fx vs gout vs skin swelling vs insect bite Related Data Previous Rx's ?Medication ?Instructions ?Recorded cephalexin 500 mg capsule 500 mg PO BID 7 days #14 cap s 06/11/25 ibuprofen 800 mg tablet 800 mg PO TID PRN pain #30 t abs 06/11/25 Allergies Allergy/AdvReac Type Severity Reaction Status Date / Time No Known Allergies Allergy Verified 06/04/25 02:12 Review of Systems Review of Systems Systems Reviewed: All systems reviewed, normal except as documented Constitutional Constitutional: Reports system reviewed and no additional complaints, except as documented, Denies fever(s) and Denies headache(s) Eyes Eyes: Reports system reviewed and no additional complaints, except as documented and Denies blurry vision ENT Ears, Nose, Mouth, and Throat: Reports system reviewed and no additional complaints, except as documented, Denies headache(s), Denies nasal congestion and Denies nasal discharge Cardiovascular Cardiovascular: Reports system reviewed and no additional complaints, except as documented, Denies chest pain and Denies dyspnea Respiratory Respiratory: Reports system reviewed and no additional complaints, except as documented, Denies chest congestion, Denies cough and Denies dyspnea Gastrointestinal Gastrointestinal: Reports system reviewed and no additional complaints, except as documented and Denies abdominal pain Musculoskeletal Musculoskeletal: Reports system reviewed and no additional complaints, except as documented, Reports arthralgias, Denies deformity, Denies numbness, Reports stiffness, Denies tingling and Reports other (Mild swelling dorsal aspect left hand) Integumentary/Breasts Skin/Breast: Reports system reviewed and no additional complaints, except as documented, Denies rash and Reports other (Bruising dorsal aspect left hand) Neurologic Neurologic: Reports system reviewed and no additional complaints, except as documented, Reports as per HPI, Denies headache(s), Denies numbness and Denies tingling Past Medical History Past Medical History CARDIAC: Negative Congestive Heart Failure RESPIRATORY: Negative Chronic Obstructive Pulmonary Disease (COPD) GENITOURINARY: Negative Renal Disease ENDOCRINE: Negative Diabetes Mellitus Type 1 or Diabetes Mellitus Type 2 Social History SMOKING STATUS: Current some day smoker ED Exam General Limitations: Present no limitations General appearance: Present alert and in no apparent distress Head Head exam: Present atraumatic Eye Eye exam: Present normal appearance, PERRL and EOMI ENT ENT exam: Present normal exam, normal oropharynx and mucous membranes moist Neck Neck exam: Present normal inspection, full ROM and trachea midline Chest Chest inspection: Present normal inspection and symmetric chest wall rise Respiratory Respiratory exam: Present normal lung sounds bilaterally Cardiovascular Cardiovascular exam: Present regular rate, normal rhythm and normal heart sounds Abdominal Exam Abdominal exam: Present soft and normal bowel sounds Extremities Exam Extremities exam: Present normal inspection and full ROM Back Exam Back exam: Present normal inspection and full ROM Neurological Exam Neurological exam: Present alert, oriented X3 and CN II-XII intact Psychiatric Psychiatric exam: Present normal affect and normal mood Skin Skin exam: Present warm, dry, intact and normal color Course Quality Measures none Orders Category Date Time Status XR hand comp LT min 3V Stat Exams 06/11/25 04:28 Taken CBC Stat Lab 06/11/25 05:17 Completed CMP [Comprehensive Metabolic Panel] Stat Lab 06/11/25 05:17 Completed CRP [C-Reactive Protein] Stat Lab 06/11/25 05:17 Completed ESR [Sed Rate (ESR)] Stat Lab 06/11/25 05:17 Completed Vital Signs Vital signs: Vital Signs Temperature 97.7 F 06/11/25 03:38 Pulse Rate 99 06/11/25 03:38 Respiratory Rate 18 06/11/25 03:38 Blood Pressure 128/88 H 06/11/25 03:38 Pulse Oximetry (%) 96 06/11/25 03:38 Oxygen Delivery Method Room Air 06/11/25 03:38 O2 saturation 96% room air within normal limit Extremity Injury MDM Narrative MDM Narrative:: 39-year-old male presents to the emergency department for complaints of swelling to the dorsal aspect of his left hand patient unsure whether or not he injured himself On exam patient has localized swelling dorsal aspect of the left hand Patient has no deformity patient is full range of motion of digits patient is no erythema I reviewed the patient's lab work was unremarkable X-ray reviewed by me no acute fracture or dislocation noted Patient be discharged with course of antibiotics and pain medication Patient discharged home in no distress to follow-up with primary care doctor in the next 24 to 48 hours and for any worsening symptoms to return to the ER immediately Patient data External records reviewed:: [facility] previous records Clinical information provided by:: patient Social determinants that could affect healthcare access:: alcohol use Patient has the following chronic illnesses:: See history How is presenting disease/condition affected by chronic disease/condition?: exacerbated by Evaluation data The following diagnostics were reviewed and interpreted by me:: lab results and radiology exam(s) Lab and/or radiology exams considered but not ordered:: Labs radiology obtained Interpretation Summary: Reviewed by me Medications / Prescriptions Medications or Prescriptions considered but not ordered:: Given Medication administrations:: Given Consultations Consultation(s) initiated? (list below): No Diagnosis Upper Extremity Injury Differential Diagnosis: other (Hand contusion, hand fracture) Most likely diagnosis given after review of the tests above:: Contusion Admission Indicated Admission indicated?: not indicated Admission Request Was there a request for admission?: No Disposition Plan Disposition Plan: Discharge Discharge Attestation Discharge Attestation: The patient and all family members were given an opportunity to ask questions and understood the discharge instructions. Discharge instructions specifically effects, indications for sooner follow up or return to the emergency department, and the expected course of current diagnosis. Patient condition: Stable Discharge Plan Plan Patient Disposition: HOME (Self Care) Discharge Disposition comment: Stable Patient condition on transfer: Stable Prescriptions/Referrals Prescriptions/Med Rec: New ibuprofen 800 mg tablet 800 mg PO TID PRN (Reason: pain) Qty: 30 0RF cephalexin 500 mg capsule 500 mg PO BID 7 Days Qty: 14 0RF Problem List Clinical Impression: Localized swelling on left hand Patient/Caregiver Discharge Instructions Additional Instructions: Please follow up with your primary care doctor in the next 24-48hrs for any worsening symptoms return here immediately Print Language: Greek Stand Alone Forms: Sherry Award Info., Patient Portal Info Letter PA/INSURANCE CLAIMS ASSISTANT Supervising Physician PA/INSURANCE CLAIMS ASSISTANT Supervising Physician: Dr. stacy
[2025-06-11 07:01] VITALS: BP 144/72; PULSE 74; RESP 20; TEMP 36.8; O2SAT 97
== END 2025-06-11 07:01 | disposition home or self-care (01) ==
LOC: SERX 07:02
PROVIDERS: Physician Assistant; Emergency Provider Family Medicine
DX: S60.222A Contusion of left hand, initial encounter (principal); X58.XXXA Exposure to other specified factors, initial encounter
CPT/HCPCS: 36415; 73130; 80053; 85025; 85652; 86140; 99283

== ENCOUNTER 2025-06-13 02:28 | Emergency (ER) | payer MEDICAID, SELFPAY ==
[2025-06-13 02:28] VITALS: BMI 22.5
[2025-06-13 02:34] VITALS: BP 163/109; PULSE 97; RESP 19; TEMP 36.8; O2SAT 96
--- NOTE | 2025-06-13 02:44 | PD.EDURI ---
Upper Respiratory Inf. RME/HPI General Chief Complaint: Flu Like Symptoms Stated Complaint: COUGH AND CONGESTION Time Seen by Provider: 06/13/25 02:38 Arrival date/time: 06/13/25 02:28 39M with history of alcohol/psych presents to with 2 days of cough and congestion. Patient was in ED 2 days ago for separate complete and likely got it while in waiting room. Limitations: no limitations Related Data Previous Rx's ?Medication ?Instructions ?Recorded cephalexin 500 mg capsule 500 mg PO BID 7 days #14 caps 06/11/25 ibuprofen 800 mg tablet 800 mg PO TID PRN pain #30 tabs 06/11/25 Allergies Allergy/AdvReac Type Severity Reaction Status Date / Time No Known Allergies Allergy Verified 06/13/25 02:30 Review of Systems Review of Systems Systems Reviewed: All systems reviewed, normal except as documented ENT Ears, Nose, Mouth, and Throat: Reports as per HPI and Reports nasal congestion Respiratory Respiratory: Reports as per HPI and Reports cough Past Medical History Past Medical History CARDIAC: Negative Congestive Heart Failure RESPIRATORY: Negative Chronic Obstructive Pulmonary Disease (COPD) GENITOURINARY: Negative Renal Disease ENDOCRINE: Negative Diabetes Mellitus Type 1 or Diabetes Mellitus Type 2 Social History SMOKING STATUS: Current every day smoker ED Exam General Limitations: Present no limitations General appearance: Present alert and in no apparent distress Head Head exam: Present atraumatic Neck Neck exam: Present normal inspection, full ROM and trachea midline Chest Chest inspection: Present normal inspection and symmetric chest wall rise Respiratory Respiratory exam: Present normal lung sounds bilaterally Neurological Exam Neurological exam: Present alert and oriented X3 Psychiatric Psychiatric exam: Present normal affect and normal mood Skin Skin exam: Present warm, dry, intact and normal color Course Quality Measures none Orders Category Date Time Status DiphenhydrAMINE [Benadryl] Med 06/13/25 02:38 Discontinued 25 mg PO X1 ONE Vital Signs Vital signs: Vital Signs Temperature 98.3 F 06/13/25 02:34 Pulse Rate 97 06/13/25 02:34 Respiratory Rate 19 06/13/25 02:34 Blood Pressure 163/109 H 06/13/25 02:34 Pulse Oximetry (%) 96 06/13/25 02:34 Oxygen Delivery Method Room Air 06/13/25 02:34 O2 at 96% on RA and WNLs Upper Respiratory Infection MDM Narrative MDM Narrative:: 39M with history of alcohol/psych presents to with 2 days of cough and congestion. Patient was in ED 2 days ago for separate complete and likely got it while in waiting room. Physical exam reveal clear lungs and normal WOB. Patient is afebrile, calm, and alert. Meds and certified drug counselor given. Patient data External records reviewed:: [facility] previous records Clinical information provided by:: patient Social determinants that could affect healthcare access:: mental health Patient has the following chronic illnesses:: psych/alcohol How is presenting disease/condition affected by chronic disease/condition?: exacerbated by Evaluation data The following diagnostics were reviewed and interpreted by me:: other (specify) (none) Lab and/or radiology exams considered but not ordered:: not ordered Interpretation Summary: n/a Medications / Prescriptions Medications or Prescriptions considered but not ordered:: ordered Medication administrations:: Medication Administration History Discontinued Medications Diphenhydramine HCl (Diphenhydramine 25 Mg Capsule) 25 mg PO X1 ONE Stop: 06/13/25 02:39 above Consultations Consultation(s) initiated? (list below): No Diagnosis Upper Respiratory Differential Diagnosis: upper respiratory infection, croup, otitis media, sinusitis, viral infection, bronchitis, influenza and pharyngitis Most likely diagnosis given after review of the tests above:: URI Admission Indicated Admission indicated?: not indicated Admission Request Was there a request for admission?: No Disposition Plan Disposition Plan: Discharge Discharge Attestation Discharge Attestation: The patient and all family members were given an opportunity to ask questions and understood the discharge instructions. Discharge instructions specifically effects, indications for sooner follow up or return to the emergency department, and the expected course of current diagnosis. Patient condition: Stable Discharge Plan Plan Patient Disposition: HOME (Self Care) Discharge Disposition comment: Stable Prescriptions/Referrals Prescriptions/Med Rec: No Action ibuprofen 800 mg tablet 800 mg PO TID PRN (Reason: pain) Qty: 30 0RF cephalexin 500 mg capsule 500 mg PO BID 7 Days Qty: 14 0RF Problem List Clinical Impression: Upper respiratory infection Patient/Caregiver Discharge Instructions Education Materials: ED URI, Viral, No Abx (Adult) Additional Instructions: Please follow-up with PCP within 24-48 hours and return immediately if symptoms worsen. Ibuprofen/Tylenol can be used simultaneously for greater fever/pain control. Benadryl is good for cough, congestion, and sleep. Keep hydrated. Advance diet as tolerated. Make sure to citrus picker previously prescribed meds from pharmacy. Print Language: Ethiopian Stand Alone Forms: Patient Portal Info Letter PA/PRIMER WATERPROOFING MACHINE ADJUSTER Supervising Physician RYLEE/JEROMY Supervising Physician: Dr. Aviles
== END 2025-06-13 02:51 | disposition home or self-care (01) ==
LOC: SERX 05:24
PROVIDERS: Emergency Provider Emergency Medicine
DX: J06.9 Acute upper respiratory infection, unspecified (principal); F17.210 Nicotine dependence, cigarettes, uncomplicated
CPT/HCPCS: 99281; A9270